=== PATIENT | female | born 1985 | race Caucasian/White ===

== ENCOUNTER 2018-08-22 19:11 | Inpatient (IN) | payer OTHER, SELFPAY ==
[2018-08-22] MEDS: 0.9% Normal Saline 100 ML IV.SOLN. INTRA-UTER (01:20)
[2018-08-22 19:50] VITALS: BMI 32.0
[2018-08-22] MEDS: Lactated Ringers 1,000 ML 50 ML IV ×2 (20:00→21:11)
[2018-08-22 20:18] LABS: Absolute Lymphocyte Count 1.94 X10^3/ul (0.83-4.51); Absolute Neutrophil Count 6.9 X10^3/uL (2.0-7.7); Basophil# 0.01 X10^3/uL; Basophil% 0.1 % (0-1); Eosinophil# 0.04 X10^3/uL; Eosinophils% 0.4 % (0-5); Hemoglobin 12.9 g/dl (12.0-15.0); Lymphocyte # 1.94 X10^3/ul (4.0); Lymphocyte % 19.9 % (19-41); Mean Corp Hgb Conc 33.9 g/gl (32-36); Mean Corpuscular Hgb 28.4 pg (27.0-32.0); Mean Corpuscular Volume 83.7 fL (81-99); Monocyte# 0.84 X10^3/uL; Monocyte% 8.6 % (0-10); Neutrophil # 6.89 X10^3/uL (2.7-7.7); Neutrophil % 70.6 % (47-70); Platelet Count 181 K/mm3 (150-450); RBC Distribution Width CV 14.5 % (11.6-14.6); RBC Distribution Width SD 43.2 fl (35.1-43.9); Red Blood Count 4.54 M/mm3 (4.2-5.4); White Blood Count 9.8 K/mm3 (4.4-11.0)
[2018-08-22 20:24] LABS: POSITIVE COUNT NO; POSITIVE DIFFERENTIAL NO; POSITIVE MORPHOLOGY NO
--- NOTE | 2018-08-22 20:41 | HP.PCM_ITS ---
- Problem List (1) Cholestasis during in third trimester Status: Acute History Date of Admission: 08/22/18 Final EMILE: 09/12/18 Final EMILE Source: US <20 weeks Gestational age: 37 Weeks and 0 Days History of this : This is a 32 year-old, G [2], P [1], at 37 weeks gestational age presenting for IOL for cholestasis. Patient first presented with s/s of cholestasis at 32 weeks and diagnosis confirmed via bloodwork soon after. Patient is currently taking Actogall 300mg PO BID for her symptoms. Patient medical, surgical, social, and family history otherwise unremarkable. Allergies No Known Allergies Allergy (Verified 08/22/18 19:56) Home Medications: Home Medications Vits [Prenatabs FA] 1 tab PO DAILY 08/22/18 Smoking Status: Never smoker Alcohol: None Number of Fetus(es): 1 Heart Tracing: Baseline 155, moderate variability, + accels, no decels TOCO Analysis: Uterine irritability noted on tocometer History Past Pregnancies: Past Pregnancies Delivery Date Name GA/Weeks Outcome Route Weight Infant Gender Labor Length Anesthesia Delivery Location Provider FOB 02/2012 39 weeks Elective IOL - Live VAVD 7#12oz M Epidural Labs: GC/CT = Neg/Neg, Urine Tox Neg, Urine Culture Neg, A+ Abs Neg, Seq Screen Neg, HIV NR, HepBsAg Neg, Rubella Immune, Syphilis Neg, 1 hour GCT = 131, H/H = 11.6/34.8 -->10.9/32.7 GBS Neg. AST/ALT/Bile Acids - elevated and indicative of cholestasis. Expected Delivery Method: Spontaneous Vaginal Describe any other labor & delivery plans:: Patient desires epidural Number of Visits: 15 Review of Systems Constitutional: Denies: Chills, Fever, Weight Change HEENT: Denies: Head Aches, Sinus Congestion, Sinus Drainage Cardiovascular: Denies: Chest Pain, Palpitations Respiratory: Denies: Cough, Shortness of breath at rest, Sputum production Gastrointestinal: Denies: Abdominal Pain, Nausea, Vomiting Genitourinary: Denies: Dysuria Musculoskeletal: Denies: Joint Pain, Joint Tenderness Skin: Denies: Rash, Wounds Neurological: Denies: Numbness, Tingling, Focal weakness Psychiatric: Denies: Anxiety, Depression, Homicidal Ideations, Suicidal Ideations Hematologic/ Lymphatic: Denies: Easy Bruising, Easy Bleeding Physical Exam General: Alert, Oriented x3, No apparent distress HEENT: Atraumatic, Normocephalic. Negative for: Thyromegaly, Lymphadenopathy Cardiovascular: Regular rate, Regular Rhythm Lungs: Clear to auscultation Abdomen: Bowel Sounds Present, Gravid Neurological: Deep Tendon Reflexes 2+/4 and Symmetrical, Neuro grossly intact AUTOMOTIVE HARDWARE ENGINEER: Normal external genitalia. Negative for: Vulvar lesions Estimated gestational size: Appropriate for gestational size - EFW = 7# Presentation: Cephalic Cervix Dilation (cm): 1 Station: -3 Effacement (%): 30 Assessment/Plan All Active Problems Cholestasis during in third trimester (Acute) This is a 32 year-old, G [2], P [1], at 37 weeks gestational age. IOL for cholestasis. Category I FHT. 1) Patient admitted, Dr. Duran aware of patient admission 2) IV started and baseline labs drawn - patient desires an epidural for labor 3) Cytotec 25mcg PV placed without difficulty - once cervix softer and midposition will attempt placement of parkinson catheter at that time 4) Reassess SVE PRN Makeda Duarte FINAL INSPECTOR TRUCK TRAILER-CNM
--- NOTE | 2018-08-23 01:40 | PN.OBGYN_ITS ---
Patient Problems: Active and Suspected Problems Cholestasis during in third trimester (Acute) Subjective: Patient sitting up in bed reporting no issues or concerns at this time, notes that contractions have become stronger after 1st dose of cytotec being placed vaginally. Patient now feels contractions q 3-8 minutes and lasting 30-60 seconds in length. Contractions palpate moderately strong and patient is also reporting that they are very strong now. Decision made to try and place cervical parkinson bulb catheter. Objective: VSS, Afebrile FHT baseline 140, moderate variability, + accels, no decels Ctx q 3-8 minutes apart, palpating mild to moderately strong SVE = 1.5/50/-2, midposition - Physical Exam General: Alert, Oriented x3, Cooperative HEENT: Atraumatic, Normocephalic Lungs: Normal air movement Cardiovascular: Regular rate Abdomen: Soft, Non Tender Extremities: No edema, Capillary Refill Less than 3 Seconds Skin: No rashes, No breakdown Neurological: Cranial nerves II-XII grossly intact Psych/Mental Status: Normal Affect, Appropriate Weight: 186 lb 8.177 oz Body Mass Index (BMI) 32.0 Laboratory Tests Past 24 Hrs 08/22/18 08/22/18 20:00 20:00 WBC 9.8 RBC 4.54 Hgb 12.9 Hct 38.0 MCV 83.7 MCH 28.4 MCHC 33.9 RDW 14.5 RDW Differential 43.2 Plt Count 181 MPV 12.0 Immature Gran % (Auto) 0.400 Neut % (Auto) 70.6 H Lymph % (Auto) 19.9 [place] % (Auto) 8.6 Eos % (Auto) 0.4 Baso % (Auto) 0.1 Absolute Neuts (auto) 6.9 Absolute Lymphs (auto) 1.94 Total Counted Not Reportable Blood Type A POSITIVE Antibody Screen NEGATIVE Medical Necessity - Tobacco Use Smoking Status: Never smoker Assessment/Plan All Active Problems Cholestasis during in third trimester (Acute) 32 y/o @ 37 weeks , IOL for cholestasis, Category I FHT P: 1) Cervical parkinson bulb placed without difficulty 2) Will consider initiation of pitocin for labor augmentation if parkinson bulb does not come out on own within several hours 3) Patient may desire epidural to be placed once parkinson catheter comes out 4) Continue to support patient and encourage position changes and PO hydration Makeda FIERRO
[2018-08-23] MEDS: fentaNYL-bupivacaine (epidural) 100 ML BAG EPIDURAL ×2 (03:05→07:21)
--- NOTE | 2018-08-23 07:17 | PN.OBGYN_ITS ---
Patient Problems: Active and Suspected Problems Cholestasis during in third trimester (Acute) Subjective: Patient comfortable after receiving her epidural last night, requests repeat SVE at this time. Nicholson decision made to AROM patient at this time to help promote labor. Objective: VSS, Afebrile FHT baseline 140, moderate variability, + accels, no decels noted Ctx q 3-4 minutes apart, palpate moderately strong SVE = 5/50/-2 and posterior, AROM for clear fluid - Physical Exam General: Alert, Oriented x3, Cooperative HEENT: Atraumatic, Normocephalic Neck: Supple Lungs: Normal air movement Cardiovascular: Regular rate Abdomen: Soft, Non Tender Extremities: No edema, Capillary Refill Less than 3 Seconds Skin: No rashes, No breakdown Musculoskeletal: No Tenderness to Palpation of Joints or Extremities Neurological: Cranial nerves II-XII grossly intact Psych/Mental Status: Normal Affect, Appropriate Weight: 186 lb 8.177 oz Body Mass Index (BMI) 32.0 Laboratory Tests Past 24 Hrs 08/22/18 08/22/18 20:00 20:00 WBC 9.8 RBC 4.54 Hgb 12.9 Hct 38.0 MCV 83.7 MCH 28.4 MCHC 33.9 RDW 14.5 RDW Differential 43.2 Plt Count 181 MPV 12.0 Immature Gran % (Auto) 0.400 Neut % (Auto) 70.6 H Lymph % (Auto) 19.9 [place] % (Auto) 8.6 Eos % (Auto) 0.4 Baso % (Auto) 0.1 Absolute Neuts (auto) 6.9 Absolute Lymphs (auto) 1.94 Total Counted Not Reportable Blood Type A POSITIVE Antibody Screen NEGATIVE Medical Necessity - Tobacco Use Smoking Status: Never smoker Assessment/Plan All Active Problems Cholestasis during in third trimester (Acute) 32 y/o @ 37+1 weeks, IOL Cholestasis, Active Labor P: 1) AROM for clear fluid done - will expectantly manage at this time as contractions are every 2-3 minutes apart 2) Consider IV pitocin per protocol for labor augmentation if contractions space out 3) Anticipate 4) Dr. Duran updated on patient's status Makeda Duarte APRN-CNAkshat
[2018-08-23] MEDS: Lactated Ringers 1,000 ML 50 ML IV (07:21)
[2018-08-23] MEDS: Oxytocin 30 units/NS 500 ml 30 UNITS/500 ML IV.SOLN IV (08:00)
--- NOTE | 2018-08-23 11:28 | PCM.PN.BLA ---
Progress Note SVE done to check on patient progress - patient is C/C/+2. Will start pushing with patient at this time. Dr. Duran updated with patient status. Category I FHT still at this time. Will start with pushing now. Makeda Duarte APRN-REBECCA
[2018-08-23] MEDS: Oxytocin 30 units/NS 500 ml 30 UNITS/500 ML IV.SOLN 334 UNITS IV (12:00)
[2018-08-23] MEDS: Oxytocin 30 units/NS 500 ml 30 UNITS/500 ML IV.SOLN 167 UNITS IV (12:30)
--- NOTE | 2018-08-23 13:05 | OP.PCM_ITS ---
Problem List (1) Cholestasis during in third trimester Status: Resolved Report of Operation Date of Procedure: 08/23/18 Pre-Operative Diagnosis: IOL for Cholestasis @ 37 weeks Post-Operative Diagnosis: of viable boy baby Vaginal Delivery Maternal Presentation: Medically Indicated Induction - Cholestasis Ghislaine is a 32 y/o who presented for IOL for cholestasis; patient was induced using cytotec, cervical parkinson bulb and pitocin without difficulty. Patient progressed uneventfully to 10cm and felt urge to bear down and push. Method of Induction: Pitocin, Parkinson Bulb, Amniotomy, Cytotec Amniotic Membrane Rupture Type: Artificial Amniotic Fluid Description: Clear Final EMILE: 09/12/18 Gestational age: 37 Weeks and 1 Days Date of Procedure: 08/23/18 Pre-Operative Diagnosis: IOL @ 37 weeks for Cholestasis Post-Operative Diagnosis: of viable boy baby Surgery/ Procedure Performed: Spontaneous Vaginal Delivery Anesthesiologist: Sonia Rodriguez Type of Anesthesia: Epidural Description of Procedure: Patient pushed well to crown and then delivered a viable boy baby over 2nd d egree lacerated perineum at 1154. Infant delivered OA and then restituted to PAUL and then LOT. Anterior shoulders delivered without difficulty followed by posterior shoulder and body. Infant with spontaneous cry and respirations. Infant dried and stimulated and was placed on maternal chest. Apgars 7 and 9. Umbilical cord clamped and cut once it stopped pulsing by FOB. Placenta then delivered spontaneously via Price mechanism intact with 3VC. FF midline to massage, IV pitocin given per protocol for active management of the 3rd stage of labor. EBL = 150cc. Upon inspection of vaginal vault, 2nd degree perineal laceration noted and was repaired int he usual fashion using 3-0 Rapide suture under epidural analgesia. Sponge and needle count correct, vaginal sweep negative. Baby to breast and soul-in-bjan initiated. Makeda Duarte BOOKKEEPER ASSISTANT-CNM Presentation: Vertex, PAUL Placental Delivery Description: Spontaneous Placenta Disposition: [facility] Cord Vessel Description: 3 Vessels Nuchal Cord Compression: Without compression Cord Entanglement: Around neck x 1, loose Estimated Blood Loss: 150 Infant A gender: Male (1 minute): 7 (5 minute): 9 Episiotomy Description: None Laceration: Midline, 2nd degree Medications given after delivery: IV Pitocin Complications: None
[2018-08-23 17:05] VITALS: BP 116/76; PULSE 92; RESP 13; TEMP 37.4
[2018-08-23 20:10] VITALS: BP 126/80; PULSE 76; RESP 18; TEMP 36.6
[2018-08-24] VITALS: BP 120/84; PULSE 88; RESP 16; TEMP 36.6
[2018-08-24 03:30] VITALS: BP 115/81; PULSE 81; RESP 16; TEMP 36.4
--- NOTE | 2018-08-24 08:27 | DCINST_ITS ---
Discharge Diet: No Restrictions Discharge Activity: Return to Normal Activity, May not drive while taking narcotic pain medications., May Shower May resume sexual activity in: 4-6 weeks Additional Activity Instructions:: Nothing in the vagina for 4-6 weeks. You may return to work/school in 6 weeks. Call your doctor if your incision/area has: Continuous Slow Oozing, Sudden Increased Bleeding, Increased Pain/ Swelling, Increased Redness, Foul Smelling Discharge Call your doctor if you observe: Fever of 101 or Higher, Inability to urinate, Inability to have a bowel movement, Using more than one pad per hour Additional Instructions: If you experience any of the following, contact your healthcare provider. * Bleeding that soaks a pad every hour for 2 hours * Fever 100.4 or higher * Unrelieved incision or abdominal pain * Swelling, redness, discharge or bleeding from your incision or episiotomy site * Your incision begins to separate * Problems urinating (including inability to urinate or burning while urinating). * Visual changes * Severe headache * Flu-like symptoms * Pain or redness in one of both of your breasts * Pain, warmth, tenderness or swelling in your legs, especially the calf area * Frequent nausea and vomiting * Symptoms of depression or anxiety If you experience any of the following, call 911 or go to the nearest Emergency Room. * Chest pain * Problems breathing * Seizure activity * Partial or complete paralysis of a body part, slurred speech, weakness or drooping of the face, or a sudden inability to walk or hold your balance Allergies/Adverse Reactions: Allergies No Known Allergies Allergy (Verified 08/22/18 19:56) Medications to take at Discharge Vits [Prenatabs FA ] 1 tab PO DAILY 08/22/18 Please Follow Up With: Sheridan Akins CNM When: Call to make an appointment with your doctor in 6 weeks. Primary Care Physician: Care Physician,No Primary [Primary Care Provider] - Test Results: Test results from this visit will be discussed in further detail at your follow- up appointment, if applicable. Proposed Discharge Date: 08/24/18
--- NOTE | 2018-08-24 08:30 | PN.OBGYN_ITS ---
Subjective: Patient sitting up in bed, bonding with baby. She reports that is latching well and she reports no issues with urination or ambulation. Patient desires discharge to home today pending discharge at 24 hour devorah. Objective: VSS, Afebrile Nipples without cracks or blisters Abdomen NT x 4 quadrants, FF midline 2FB below umbilicus +2/4 reflexes in LE, no edema, no calf tenderness to palpation Scant rubra lochia, perineum well-approximated - Physical Exam General: Alert, Oriented x3, Cooperative HEENT: Atraumatic, Normocephalic Neck: Supple Lungs: Clear to auscultation, Normal air movement Cardiovascular: Regular rate, No murmurs Abdomen: Soft, Non Tender Extremities: No edema, Capillary Refill Less than 3 Seconds Skin: No rashes, No breakdown Musculoskeletal: No Tenderness to Palpation of Joints or Extremities Neurological: Cranial nerves II-XII grossly intact Psych/Mental Status: Normal Affect, Appropriate Vital Signs Temp Pulse Resp BP 97.5 F L 81 16 115/81 H 08/24/18 03:30 08/24/18 03:30 08/24/18 03:30 08/24/18 03:30 Oxygen Delivery Method Room Air Weight: 186 lb 8.177 oz Body Mass Index (BMI) 32.0 Intake and Output for Last 24 Hours 08/22/18 08/23/18 08/24/18 23:59 23:59 23:59 Output Total 800 / 800 Balance -800 / -800 Medical Necessity - Tobacco Use Smoking Status: Never smoker Assessment/Plan All Active Problems Cholestasis during in third trimester (Resolved) 32 y/o s/p of viable boy baby, PPD #1, Normal PP course P: 1) Discharge patient to home 2) teaching and instructions reviewed 3) RTC at 2 weeks and 6 week PP to [facility] Makeda FIERRO
[2018-08-24 09:44] VITALS: BP 105/62; PULSE 97; RESP 18; TEMP 36.3
--- NOTE | 2018-08-28 19:33 | NURSING ---
States doing well. Baby is gaining and exclusively . States what a great experience , Janeth was fantastic and norah was fabulous.
== END 2018-08-24 17:30 | disposition home or self-care (01) | DRG 805 ==
PROVIDERS: Advanced Practice Midwife; Admitting Provider Obstetrics & Gynecology; Referring Provider Obstetrics & Gynecology; Visit Provider Obstetrics & Gynecology
DX: O26.62 Liver and biliary tract disorders in childbirth (principal); K83.1 Obstruction of bile duct; Z37.0 Single live birth; O69.81X0 Labor and delivery complicated by cord around neck, without compression, not applicable or unspecified; O70.1 Second degree perineal laceration during delivery; Z3A.37 37 weeks gestation of pregnancy
CPT/HCPCS: 59025; 59050; 85025; 86850; 86900; 99218; J7120; G0378

== ENCOUNTER 2022-01-15 15:27 | Emergency (ER) | payer BC, SELFPAY ==
[2022-01-15 15:28] VITALS: BP 170/90; PULSE 132; RESP 18; TEMP 36.9; O2SAT 100; BMI 31.8
[2022-01-15 15:32] VITALS: BP 140/100; PULSE 127; RESP 20; O2SAT 18
--- NOTE | 2022-01-15 15:44 | EKG12_ITS ---
Test Reason : Blood Pressure : / mmHG Vent. Rate : 122 BPM Atrial Rate : 122 BPM P-R Int : 134 ms QRS Dur : 088 ms QT Int : 340 ms P-R-T Axes : 069 065 -26 degrees QTc Int : [address] & T wave abnormality, consider inferolateral ischemia Abnormal ECG Confirmed by DEBORAH CARDOZA, ANAHI ([id number]), editor & co founder MASON ATKINS ([id number]) on 01/16/2022 9:20:23 AM Referred By: TRENA Confirmed By:ANAHI CABRERA MD
--- NOTE | 2022-01-15 16:07 | EDS_ITS ---
HPI History of Present Illness Chief Complaint: Palpitations Detail of Chief Complaint: Fast heart rate Informant: patient, spouse/S.O. and PCP Onset/Context/Timing Onset: - (Unknown) Context: Sudden Onset (Episode of dizziness 2 days ago and episode of lightheadedness today) Timing: Intermittent (Symptoms have been intermittent heart rate unknown) Quality: Fast heart rate with dizziness and lightheadedness 2 days ago and prior to Location: Not applicable Current Severity: Patient unaware that her heart is beating rapidly Maximum Severity: Unknown Worsened by: Nothing Relieved by: Patient believes her dizziness that occurred 2 days ago and the lightheaded Associated Symptoms Associated Symptoms: Per HPI narrative Narrative Narrative: Patient is a 26-year-old healthy woman on no medication with environmental allergies. 2 days ago she became dizzy. She thought it was related to her allergies. She states the dizziness lasted for 15 minutes. There was no precipitating or exacerbating factor. She states after she used her Flonase her symptoms resolved. Today while working out she felt lightheaded. Her vision became slightly black. She again used her Flonase and symptoms resolved. She went to the [facility] [place] urgent care since she recently moved to the area and does not have a physician. She wanted her ears checked out. They noted that her heart rate was fast and did an EKG. There is concern because of lateral ischemia per the physician who saw her. She denies headache, visual, ocular or auditory symptoms. [place] trouble speech or swallowing. Denies shortness of breath, dyspnea exertion, orthopnea or PND. She denies GI symptoms. She denies history of trauma. She denies symptoms of hypo or hyperthyroidism. She is on no herbal supplements. She states approximate 2 weeks ago she received the flu vaccine and approximately 3 weeks ago she received the COVID booster. Prior similar symptoms: No Recent Illness/Hospitalization: No PFSH PFSH Medical History no medical history no medical history Allergy/AdvReac Type Severity Reaction Status Date / Time No Known Allergies Allergy Verified 01/15/22 15:28 Surgical History no surgical history no surgical history Social History (Updated 01/15/22 @ 16:[address] Rubin Tee MD) household members: significant other Smoking Status: Never smoker substance use type: does not use ROS ROS ED Constitutional Constitutional ED: Denies chills, fever(s), subjective, sweats or weight loss Eyes Eyes: Denies blurry vision, change in vision or diplopia ENT ENT ED: Denies ear pain, rhinorrhea or sore throat Cardiovascular Cardiovascular: Reports other Details: Per HPI narrative ; Denies chest pain, palpitations or racing heartbeat Gastrointestinal Gastrointestinal: Denies abdominal pain, constipation, diarrhea, melena, nausea, vomiting or other Genitourinary Genitourinary ED: Denies dysuria, hematuria or urinary frequency Musculoskeletal Musculoskeletal: Denies arthralgias, back pain, myalgias or neck pain Integumentary Denies Abrasions or rash Neurologic Neurologic: Denies headache(s), paresthesias or weakness Endocrine Endocrinology: Denies cold intolerance, heat intolerance, polydipsia, polyphagia or polyuria Hematologic/Lymphatic Hematologic/Lymphatic: Reports systems reviewed and no addt'l complaints, except as documented and none EXAM Physical Exam Const Vital Signs: 01/15/22 15:28 01/15/22 15:32 01/15/22 15:32 Temperature 98.4 F Temperature Source Temporal Pulse Rate 132 H 127 H Pulse Rate [Lying] Pulse Rate [Sitting (for 1 minute prior to obtaining)] Pulse Rate [Standing (for 1 minute prior to obtaining)] Respiratory Rate 18 20 H Respiratory Effort Normal Non-Labored Blood Pressure 170/90 H 140/100 H Blood Pressure [Lying] Blood Pressure [Sitting (for 1 minute prior to obtaining)] Blood Pressure [Standing (for 1 minute prior to obtaining)] Blood Pressure Mean 116 113 Blood Pressure Mean [Lying] Blood Pressure Mean [Sitting (for 1 minute prior to obtaining)] Blood Pressure Mean [Standing (for 1 minute prior to obtaining)] Pulse Ox 100 18 Oxygen Delivery Method Room Air Room Air 01/15/22 16:59 01/15/22 20:33 01/15/22 22:05 Temperature Temperature Source Pulse Rate 114 H 112 H Pulse Rate [Lying] 128 H Pulse Rate [Sitting (for 1 minute prior to obtaining)] 129 H Pulse Rate [Standing (for 1 minute prior to obtaining)] 128 H Respiratory Rate 18 18 Respiratory Effort Blood Pressure 108/85 H 105/77 Blood Pressure [Lying] 130/74 H Blood Pressure [Sitting (for 1 minute prior to obtaining)] 127/95 H Blood Pressure [Standing (for 1 minute prior to obtaining)] 131/95 H Blood Pressure Mean 92 86 Blood Pressure Mean [Lying] 92 Blood Pressure Mean [Sitting (for 1 minute prior to obtaining)] 105 Blood Pressure Mean [Standing (for 1 minute prior to obtaining)] 107 Pulse Ox 100 99 Oxygen Delivery Method Room Air Room Air Positive well nourished, well developed and obese General Appearance ED: well developed and NAD; Negative for cyanotic, diaphoretic or pallor Nutritional Appearance: obese HEENT Reports moist mucous membranes HEENT Narrative: Head is atraumatic normocephalic. Ears normal. Nares patent. Posterior pharynx out erythema or exudate. Uvula midline. No deviation with protrusion. Eyes PERRL and EOMs intact bilaterally Eyes Narrative: There is no APD. Cup-to-disc ratio is normal. There is no papilledema. General Eye ED: Negative for pale conjunctiva or scleral icterus Neck no lymphadenopathy, supple and no JVD Chest Wall inspection of chest normal and palpation of chest normal Resp normal respiratory effort and clear to auscultation bilaterally Cardio regular rhythm, S1 normal heart sound, S2 normal heart sound and no murmurs Rate: tachycardic GI normal to inspection, nondistended, normoactive bowel sounds, non-tender, non- distended and no masses; Negative for hepatosplenomegaly Auscultation: normoactive bowel sounds Palpation: soft Back/Spine no CVA tenderness Extremity normal to inspection General Extremety ED: Negative for edema or tenderness General Extremity: Negative for edema Neuro oriented x3, CN's II-XII intact bilaterally and no sensory deficits noted Sensorium / Orientation: alert Motor Exam: strength 5/5 throughout Psych mental status grossly normal Skin no rashes or lesions noted, no wounds and skin turgor normal General Skin Exam: elasticity normal; Negative for jaundice or pallor MDM MDM MDM Narrative Medical decision making narrative: Patient has asymptomatic tachycardia. The dizziness and lightheadedness may be related to the tachycardia. This could be due to recent immunization and concern for possible myocarditis. Will obtain EKG, troponin and appropriate blood work. Her EKG is not normal. Lab Data Attestation: I reviewed the patient's lab results. Lab results narrative: Electrolyte panels unremarkable. TSH is normal. Troponin is normal. Labs: Laboratory Results - last 24 hr 01/15/22 01/15/22 01/15/22 15:40 15:40 20:29 Sodium 139 Potassium 3.4 L Chloride 105 Carbon Dioxide 27.0 Anion Gap 7 BUN 12 Creatinine 0.86 Estim Creat Clear Calc 78.09 Est GFR (MDRD) Af Amer 96 Est GFR (MDRD) Non-Af 79 BUN/Creatinine Ratio 14.0 Glucose 140 H Calcium 8.8 Troponin I High Sens 5 TSH 2.44 Radiography Diagnostic Testing: Clinical Impression(s) from Imaging Studies Chest X-Ray 01/15/22 17:28 IMPRESSION: No acute cardiopulmonary disease. Electronically Signed: Armani Varner DO at 17:35 EST Reading Location ID and State: [address] [place] [address] Tel [phone], Service support , EKG Initial EKG: Attestation: I personally reviewed and interpreted this EKG as follows: Interpretation: Sinus Tachycardia (Ventricular rate is 122. AL interval 234 ms. QS duration 88 ms. QT duration 3 and 40 ms. [place] is normal. There is evidence of nonspecific ST-T wave changes in the inferolateral leads. There is no old EKG for comparison.) Treatment and Re-Evaluation Narrative: Patient was informed that she was referred to Dr. Antonio Quintanilla for outpatient follow-up. With patient having no symptoms and unaware that she has had rapid heart rate no additional studies were obtained. There is no concern for PE. Patient has no risk factors for PE. Discharge Plan Triage Chief Complaint: Palpitations ED Provider: Rubin Tee Dx/Rx/DC Orders Clinical Impression: Sinus tachycardia Primary Care Provider: Care Physician,No Primary Referrals: Antonio Quintanilla MD [Med Staff - Active Staff] - As soon as possible Care Physician,No Primary [Primary Care Provider] - Disposition Disposition: Home, Self Care
[2022-01-15 16:52] LABS: Anion Gap 7 (5-15); BUN 12 mg/dL (7-18); Calcium,Total 8.8 mg/dL (8.5-10.1); Chloride 105 mmol/L (98-107); Creatinine, Serum 0.86 mg/dL (0.55-1.02); EST Glomerular Filtration Rate 79 mL/min (>60); Est Glom Filt Rate - Afr Amer 96 mL/min (>60); Estimated Creatinine Clearance 78.09 ml/min; Glucose 140 mg/dL (74-106); Potassium 3.4 mmol/L (3.5-5.1); Sodium Level 139 mmol/L (136-145)
[2022-01-15 16:59] VITALS: BP 127/95; BP 130/74; BP 131/95; PULSE 128; PULSE 129
[2022-01-15 17:01] LABS: Thyroid Stim Hormone (TSH) 2.44 uIU/mL (0.358-3.74)
--- NOTE | 2022-01-15 17:28 | RAD_ITS ---
STUDY: X-RAY CHEST REASON FOR EXAM: Female, 36 years old. Palpitations. TECHNIQUE: PA and lateral views of the chest. COMPARISON: None. FINDINGS: The lungs are clear and expanded. There is no demonstrated pleural abnormality. Normal size heart. Normal mediastinum and aundrea. Normal visualized pulmonary arteries. Normal visualized aortic arch and descending thoracic aorta. Normal visualized thoracic spine. Normal visualized ribs, clavicles, and shoulders. There is no demonstrated abnormality of the visualized soft tissue structures of the upper abdomen. RAD/Chest PA and Lateral IMPRESSION: No acute cardiopulmonary disease. Electronically Signed: Armani Varner DO at 17:35 EST ,
[2022-01-15 20:33] VITALS: BP 108/85; PULSE 114; RESP 18; O2SAT 100
[2022-01-15 21:02] LABS: Troponin-I HS 5 pg/mL (3.0-54.0)
[2022-01-15 22:05] VITALS: BP 105/77; PULSE 112; RESP 18; O2SAT 99
[2022-01-15 23:17] VITALS: BP 125/73; PULSE 112; RESP 18; O2SAT 99
== END 2022-01-15 23:17 | disposition home or self-care (01) ==
PROVIDERS: Emergency Provider Emergency Medicine; Visit Provider Emergency Medicine
DX: R00.2 Palpitations (principal); R42 Dizziness and giddiness; R00.0 Tachycardia, unspecified
CPT/HCPCS: 71046; 80048; 84443; 84484; 93005; 99285; A4216

== ENCOUNTER 2022-01-18 09:44 | Emergency (ER) | payer BC, SELFPAY ==
[2022-01-18 09:44] VITALS: BP 132/97; PULSE 125; RESP 16; TEMP 36.3; O2SAT 99; BMI 30.9
--- NOTE | 2022-01-18 10:17 | EX.ED.DYSGE1 ---
HPI History of Present Illness Chief Complaint: Palpitations Informant: patient Onset/Context/Timing Onset: Days (4) Context: Gradual Onset Timing: Continuous and Waxes and wanes Quality: Racing Location: Chest Worsened by: Activity Relieved by: Rest Narrative Narrative: Patient presents with tachycardia that has been constant for the past 4 days. Patient was seen here 3 days ago for this. Patient states that they were unable to do an echocardiogram at that time. Patient was referred to cardiology for follow-up echocardiogram. Patient states that she was unable to be seen by cardiology until March. Patient was referred back to the emergency department for the echocardiogram. Patient states her tachycardia gets worse whenever she goes up and down stairs and walks. Patient states it gets better with rest. PFSH PFSH Medical History no medical history Home Medications NK 01/18/22 [History Last Taken Unknown] Allergy/AdvReac Type Severity Reaction Status Date / Time No Known Allergies Allergy Verified 01/15/22 15:28 Surgical History no surgical history Social History household members: significant other Smoking Status: Never smoker substance use type: does not use ROS ROS ED Constitutional Constitutional ED: Denies chills or fever(s) Eyes Eyes: Denies blurry vision or change in vision ENT ENT ED: Denies rhinorrhea or sore throat Cardiovascular Cardiovascular: Reports palpitations and racing heartbeat; Denies chest pain Respiratory/Chest Respiratory/Chest: Denies cough or dyspnea Gastrointestinal Gastrointestinal: Denies nausea or vomiting Genitourinary Genitourinary ED: Denies dysuria or hematuria Musculoskeletal Musculoskeletal: Denies back pain or neck pain Integumentary Reports rash; Denies abscess Neurologic Neurologic: Denies headache(s) or weakness Allergic/Immunologic Allergic/Immunologic ED: Denies mouth swelling or urticaria EXAM Physical Exam Const Vital Signs: 01/18/22 09:44 01/18/22 10:06 01/18/22 10:48 Temperature 97.3 F L Temperature Source Temporal Pulse Rate 125 H Respiratory Rate 16 Respiratory Effort Normal Non-Labored Blood Pressure 132/97 H Blood Pressure Mean 108 Pulse Ox 99 Oxygen Delivery Method Room Air Room Air Positive well nourished and well developed General Appearance ED: well developed and NAD HEENT Reports moist mucous membranes Neck supple and no JVD Resp normal respiratory effort and clear to auscultation bilaterally Cardio regular rhythm and no murmurs Rate: tachycardic GI normal to inspection, nondistended, normoactive bowel sounds and non-tender Palpation: soft Extremity normal to inspection General Extremety ED: Negative for edema or tenderness General Extremity: Negative for edema Neuro oriented x3, CN's II-XII intact bilaterally and no sensory deficits noted Sensorium / Orientation: alert Motor Exam: strength 5/5 throughout Psych mental status grossly normal Skin no rashes or lesions noted MDM MDM MDM Narrative Medical decision making narrative: EKG was obtained. On my interpretation, it showed a sinus tachycardia with a rate of 120. [place] interval, QRS interval, and QTc intervals were all normal. [place] was normal. There there is nonspecific ST depression in leads V3 through V6. CBC was within normal limits. Basic metabolic profile was within normal limits. High-sensitivity troponin was normal. 2D echocardiogram was obtained. There is normal ejection fraction of 55%. There is no wall motion abnormality. There is no pericardial effusion. This was interpreted by the dado operator. Patient was advised of her findings. Patient was instructed to follow-up with cardiology as scheduled. Patient was also given referral for primary care physician for follow-up care. Patient understood and was agreeable with the plan. All questions were answered. Lab Data Attestation: I reviewed the patient's lab results. Labs: Laboratory Results - last 24 hr 01/18/22 01/18/22 10:55 10:55 WBC 8.4 RBC 4.58 Hgb 12.3 Hct 38.3 MCV 83.6 MCH 26.9 L MCHC 32.1 RDW Std Deviation 39.0 RDW Coeff of Ivis 13.0 Plt Count 245 MPV 10.1 Immature Gran % (Auto) 0.400 Neut % (Auto) 69.9 Lymph % (Auto) 21.3 [place] % (Auto) 7.5 Eos % (Auto) 0.5 Baso % (Auto) 0.4 Absolute Neuts (auto) 5.9 Absolute Lymphs (auto) 1.78 Nucleated RBC % 0 Sodium 138 Potassium 3.8 Chloride 107 Carbon Dioxide 27.0 Anion Gap 4 L BUN 11 Creatinine 0.85 Estim Creat Clear Calc 79.01 Est GFR (MDRD) Af Amer 97 Est GFR (MDRD) Non-Af 80 BUN/Creatinine Ratio 12.9 Glucose 94 Calcium 9.3 Troponin I High Sens 3 Radiography Diagnostic Testing: Clinical Impression(s) from Imaging Studies Echocardiogram 01/18/22 10:25 Interpretation Summary The left ventricular ejection fraction is 55 %. Ordering Physician: Osbaldo Perkins Performed By: Anca Clifford RDCS Initial EKG: Attestation: I personally reviewed and interpreted this EKG as follows: Interpretation: Sinus Tachycardia (120) and Non-Specific ST Changes Prior EKG tracings: available for review Prior: Unchanged (01/15/2022) Discharge Plan Triage Chief Complaint: Palpitations ED Provider: Osbaldo Perkins Dx/Rx/DC Orders Clinical Impression: Sinus tachycardia Instructions: ED Tachycardia: PAT Prescriptions: No Action NK Primary Care Provider: Care Physician,No Primary Referrals: Marii Barnett MD [Med Staff - [employer]] - 5-7 Days Care Physician,No Primary [Primary Care Provider] - Disposition Disposition: Home, Self Care
--- NOTE | 2022-01-18 10:25 | ECHOD_ITS ---
Reason For Study: PALPITATIONS Procedure This was a 2D Doppler, Color Flow transthoracic echocardiogram. Exam performed portable in ED. Left Ventricle Normal left ventricle. The left ventricular ejection fraction is 55 %. Normal diastololic function. Right Ventricle Normal right ventricle. Atria The left and right atria are normal. Mitral Valve The mitral valve is structurally normal. No prolapse or stenosis seen. Tricuspid Valve Trivial tricuspid valve insufficiency. Normal pulmonary artery pressure. Aortic Valve Trisinus/trileaflet aortic valve. Trivial aortic valve insufficiency. Pulmonic Valve The pulmonic valve is not well visualized. Great Vessels Normal sized aortic root. Pericardium/Pleural No pericardial effusion. MMode/2D Measurements & Calculations LVIDd: 4.6 cm IVSd: 0.79 cm Ao root diam: 2.8 cm LVIDs: 3.1 cm LVPWd: 0.81 cm RVDd: 2.9 cm FS: 32.9 % LAV(MOD-bp): 34.7 ml LVAd ap4: 27.6 cm2 SV(MOD-sp4): 51.5 ml LAV(MOD-bp) Indexed: 18.6 ml/m2 LVLd ap4: 7.9 cm LAV(MOD-sp2): 29.3 ml EDV(MOD-sp4): 80.8 ml LAV(MOD-sp4): 34.4 ml EDV(sp4-el): 82.2 ml LVAs ap4: 15.0 cm2 LVLs ap4: 6.3 cm ESV(MOD-sp4): 29.3 ml ESV(sp4-el): 30.1 ml EF(MOD-sp4): 63.7 % EF(sp4-el): 63.3 % SV(sp4-el): 52.0 ml LA A4 area: 14.9 cm2 LA dimension(2D): 3.3 cm RA A4 area: 11.7 cm2 Time Measurements MV dec time: 0.18 sec Doppler Measurements & Calculations MV E max raj: 94.2 cm/sec Lat Peak E' Raj: 18.3 cm/sec Med Peak E' Raj: 15.4 cm/sec MV A max raj: 91.8 cm/sec E/E' lat: 5.2 E/E' med: 6.1 MV E/A: 1.0 Ao V2 max: 127.7 cm/sec LV V1 max: 91.8 cm/sec PA V2 max: 109.4 cm/sec Ao max P.5 mmHg LV V1 max P.4 mmHg TR max raj: 232.4 cm/sec TR max P.6 mmHg ECHO/Echo Complete Interpretation Summary The left ventricular ejection fraction is 55 %. Ordering Physician: Osbaldo Perkins Performed By: Anca Clifford RDCS
[2022-01-18] MEDS: Aspirin 81 MG TAB.CHEW 324 MG PO (10:39)
[2022-01-18 11:00] LABS: Absolute Lymphocyte Count 1.78 X10^3/uL (0.83-4.51); Absolute Neutrophil Count 5.9 X10^3/uL (2.0-7.7); Basophil# 0.03 X10^3/uL; Basophil% 0.4 % (0-1); Eosinophil# 0.04 X10^3/uL; Eosinophils% 0.5 % (0-5); Hematocrit 38.3 % (37-47); Hemoglobin 12.3 g/dL (12.0-15.0); Lymphocyte # 1.78 X10^3/ul (0.83-4.51); Lymphocyte % 21.3 % (19-41); Mean Corp Hgb Conc 32.1 g/dL (32-36); Mean Corpuscular Hgb 26.9 pg (27.0-32.0); Mean Corpuscular Volume 83.6 fL (81-99); Mean Platelet Vol. 10.1 fl (6.2-12.0); Monocyte# 0.63 X10^3/uL; Monocyte% 7.5 % (0-10); NRBC Flagged by Analyzer 0 % (0-5); Neutrophil # 5.85 X10^3/uL (2.7-7.7); Neutrophil % 69.9 % (47-70); Platelet Count 245 K/mm3 (150-450); Red Blood Count 4.58 M/mm3 (4.2-5.4); White Blood Count 8.4 K/mm3 (4.4-11.0)
[2022-01-18 11:20] LABS: Anion Gap 4 (5-15); BUN 11 mg/dL (7-18); BUN/Creat Ratio 12.9 RATIO (10-20); Calcium,Total 9.3 mg/dL (8.5-10.1); Chloride 107 mmol/L (98-107); Creatinine, Serum 0.85 mg/dL (0.55-1.02); EST Glomerular Filtration Rate 80 mL/min (>60); Est Glom Filt Rate - Afr Amer 97 mL/min (>60); Estimated Creatinine Clearance 79.01 ml/min; Glucose 94 mg/dL (74-106); Potassium 3.8 mmol/L (3.5-5.1); Sodium Level 138 mmol/L (136-145); Troponin-I HS 3 pg/mL (3.0-54.0)
[2022-01-18 13:10] VITALS: BP 119/79; PULSE 99; RESP 19; O2SAT 100
== END 2022-01-18 13:16 | disposition home or self-care (01) ==
PROVIDERS: Emergency Provider Emergency Medicine; Visit Provider Emergency Medicine
DX: R00.2 Palpitations (principal); R00.0 Tachycardia, unspecified
CPT/HCPCS: 80048; 84484; 85025; 93005; 93306; 99283; A4216

== ENCOUNTER → 2022-03-28 | Outpatient (CLI) | payer OTHER, SELFPAY | END | disposition home or self-care (01) | PROVIDERS: PCP Internal Medicine; Referring Provider Internal Medicine Cardiovascular Disease; Visit Provider Internal Medicine Cardiovascular Disease | DX: R00.0 Tachycardia, unspecified (principal) | CPT/HCPCS: 93225; 93226 ==